=== PATIENT | female | born 1935 | race Caucasian/White ===

== ENCOUNTER 2020-01-22 13:54 | Emergency (ER) | payer OTHER ==
[~2020-01-22] VITALS: Ht 165.1 cm; Wt 74.8 kg
[~2020-01-22 13:54] MED LIST: ACTOS 45 MG45 M1 PO; ALDACTONE25 MG PO; CENTRUM SILVER1 EAC1 PO; FLEXERIL PO; GLUCOTROL5 MG PO; LISINOPRIL2.5 MG PO; MECLIZINE HCL25 M1 PO; ROVIN-CF OF TA1 EACH PO; TIMOLOL GL0.5 %/5 M1 OP; VITAMIN E400 UNIT PO; ZOCOR 20 MG TAB20 M1 PO
[2020-01-22] MEDS ORDERED: PIOGLITAZONE15 MG (14:01)
[2020-01-22] MEDS ORDERED: VITAMIN B-121000 MC2 PO (14:02)
[2020-01-22] MEDS ORDERED: VALIUM5 MG PO (15:46)
[2020-01-22 16:00] VITALS: BP 118/70
== END 2020-01-22 16:01 | disposition home or self-care (01) ==
LOC: ER 13:54
DX: S39.012A Strain of muscle, fascia and tendon of lower back, initial encounter (principal); E11.9 Type 2 diabetes mellitus without complications; Z87.442 Personal history of urinary calculi; Z90.49 Acquired absence of other specified parts of digestive tract; Z79.899 Other long term (current) drug therapy; X58.XXXA Exposure to other specified factors, initial encounter; Y93.89 Activity, other specified; Y92.89 Other specified places as the place of occurrence of the external cause; Y99.8 Other external cause status

== ENCOUNTER 2020-02-02 16:23 | Emergency (ER) | payer OTHER ==
[~2020-02-02] VITALS: Ht 165.1 cm; Wt 74.8 kg
[~2020-02-02 16:23] MED LIST changes: +PIOGLITAZONE15 MG; +VALIUM5 MG PO; +VITAMIN B-121000 MC2 PO
[2020-02-02 17:23] LABS: HEMATOCRIT 35.7 % (37.0-47.0); MCH 32.7 pg (26.0-34.0); MCHC 33.6 g/dL (28.0-37.0); MCV 97.4 fL (80.0-100.0); RBC 3.66 mil/uL (4.20-5.00); RDW 13.5 % (10.5-14.5); WBC 9.2 thou/uL (4.0-11.0)
[2020-02-02 17:32] LABS: CALCIUM 11.1 mg/dL (8.5-10.1); CREATININE 1.5 mg/dL (0.6-1.0); POTASSIUM 5.4 mmol/L (3.5-5.1)
[2020-02-02 17:38] LABS: ALBUMIN 3.3 g/dL (3.4-5.0); TOTAL BILIRUBIN 0.5 mg/dL (0.2-1.0); TOTAL PROTEIN 6.8 g/dL (6.4-8.2)
[2020-02-02] MEDS ORDERED: ULTRAM 50MG TAB50 MG PO (19:11)
[2020-02-02] MEDS ORDERED: MELOXICAM15 MG PO (19:11)
[2020-02-02 19:31] VITALS: BP 164/56
== END 2020-02-02 19:31 | disposition home or self-care (01) ==
LOC: ER 16:23
PROVIDERS: Nurse Practitioner
DX: M25.551 Pain in right hip (principal); R53.81 Other malaise; E11.9 Type 2 diabetes mellitus without complications; Z90.711 Acquired absence of uterus with remaining cervical stump; Z87.442 Personal history of urinary calculi; Z90.49 Acquired absence of other specified parts of digestive tract; Z79.899 Other long term (current) drug therapy